=== PATIENT | male | born 1970 | race Caucasian/White ===

== ENCOUNTER 2020-10-11 14:15 | Emergency (ER) | payer OTHER ==
[~2020-10-11] VITALS: Ht 177.8 cm; Wt 91.8 kg
[2020-10-11 14:20] VITALS: Ht 177.8 cm; Wt 91.8 kg
[2020-10-11] MEDS ORDERED: ZOLOFT100 MG PO (14:31)
[2020-10-11] MEDS ORDERED: JARDIANCE25 MG PO (14:31)
[2020-10-11] MEDS ORDERED: MOBIC7.5 MG PO (14:31)
[2020-10-11] MEDS ORDERED: FENOFIBRATE160 MG PO (14:31)
[2020-10-11] MEDS ORDERED: FLOMAX0.4 MG PO (14:32)
[2020-10-11] MEDS ORDERED: GLIPIZIDE5 MG PO (14:32)
[2020-10-11] MEDS ORDERED: METFORMIN HCL500 M1 PO (14:32)
[2020-10-11] MEDS ORDERED: LISINOPRIL10 MG PO (14:32)
[2020-10-11 14:48] LABS: EOSINOPHILS 4.6 % (0-7); HEMATOCRIT 37.9 % (42.0-54.0); HEMOGLOBIN 13.1 g/dL (13.5-17.5); LYMPHOCYTES 24.2 % (15-50); MCHC 34.6 g/dL (31.0-37.0); MCV 92.5 fL (80.0-100.0); MEAN PLATELET VOLUME 7.7 fL (7.4-10.4); NEUTROPHILS 65.2 % (40-80); PLATELET COUNT 411 10x3/uL (130-400); RDW 13.2 % (11.5-14.5); WBC 9.9 10x3/uL (4.8-10.8)
[2020-10-11 14:54] LABS: ANION GAP 16.6 mmol/L (8-16); CALCIUM 9.7 mg/dL (8.5-10.1); CARBON DIOXIDE 27.7 mmol/L (21.0-32.0); CREATININE - SERUM 1.3 mg/dL (0.6-1.3); POTASSIUM - SERUM 4.3 mmol/L (3.5-5.1)
[2020-10-11 14:59] LABS: ALBUMIN 4.1 g/dL (3.4-5.0); BILIRUBIN - TOTAL 0.32 mg/dL (0.2-1.3); PROTEIN - SERUM 8.3 g/dL (6.4-8.2)
[2020-10-11 15:04] LABS: BILIRUBIN NEGATIVE (NEGATIVE); KETONE NEGATIVE mg/dL (< 1+); NITRITE NEGATIVE (NEGATIVE); PH 6.5 (5.0-8.0); UROBILINOGEN NORMAL mg/dL (< 2); WHITE CELLS - URINE 1 HPF (0-1)
[2020-10-11 16:14] VITALS: BP 110/70
== END 2020-10-11 17:21 | disposition home or self-care (01) ==
LOC: D.ER 14:15
PROVIDERS: Family Medicine
DX: R10.9 Unspecified abdominal pain (principal); Z98.890 Other specified postprocedural states; E11.9 Type 2 diabetes mellitus without complications; I10 Essential (primary) hypertension; E78.5 Hyperlipidemia, unspecified